=== PATIENT | male | born 1990 | race Caucasian/White ===

== ENCOUNTER 2019-04-09 16:57 | Inpatient (IN) | payer OTHER ==
[2019-04-09 20:34] VITALS: BMI 25.0
[2019-04-09] MEDS ORDERED: MAGNESIUM CITRATE 300 ML BOTTLE PO PRN (20:40)
[2019-04-09] MEDS ORDERED: MENTHOL/PHENOL 1 EACH UD MM PRN (20:40)
[2019-04-09] MEDS ORDERED: MAGNESIUM HYDROX 2400MG/30ML ORAL SUSPENSION 30 ML CUP PO PRN (20:40)
[2019-04-09] MEDS ORDERED: chlordiazePOXIDE HCL 10 MG CAPSULE PO PRN (20:40)
[2019-04-09] MEDS ORDERED: ACETAMINOPHEN 325 MG TABLET (FP) PO PRN ×2 (20:40)
[2019-04-09] MEDS ORDERED: METHOCARBAMOL 500 MG TABLET PO PRN (20:40)
[2019-04-09] MEDS ORDERED: IBUPROFEN 400 MG TABLET (FP) PO PRN (20:40)
[2019-04-09] MEDS ORDERED: NICOTINE POLACRILEX 2 MG GUM BUC PRN (20:40)
[2019-04-09] MEDS ORDERED: hydrOXYzine PAMOATE 25 MG CAPSULE (FP) PO PRN (20:40)
[2019-04-09] MEDS ORDERED: BISMUTH SUBSALICYLATE 524 MG/30 ML UD PO PRN (20:40)
[2019-04-09] MEDS ORDERED: MAG HYDROX/AL HYDROX/SIMETH 30 ML UNIT-DOSE CUP PO PRN (20:40)
--- NOTE | 2019-04-09 21:43 | HP ---
CIWA Score Nausea/Vomitin Muscle Tremors: 1-None Visible, but [place] Anxiety: 3 Agitation: 0-Normal Activity Paroxysmal Sweats: 2 Orientation: 0-Oriented Tacttile Disturbances: 1-Very Mild Itch/Numbness Auditory Disturbances: 0-None Visual Disturbances: 1-Very Mild Sensitivity Headache: 2-Mild CIWA-Ar Total Score: 12 - Admission Criteria OASAS Guidelines: Admission for Medically Managed Detox: Requires at least one of the followin. CIWA greater than 12 2. Seizures within the past 24 hours 3. Delirium tremens within the past 24 hours 4. Hallucinations within the past 24 hours 5. Acute intervention needed for co occurring medical disorder 6. Acute intervention needed for co occurring psychiatric disorder 7. Severe withdrawal that cannot be handled at a lower level of care (continued vomiting, continued diarrhea, abnormal vital signs) requiring intravenous medication and/or fluids 8. Patient presents the following: CIWA greater than 12 Admission Criteria Met: Admission criteria met [facility] Chief Complaint: alcohol withdrawal symptoms Allergies/Adverse Reactions: Allergies Allergy/AdvReac Type Severity Reaction Status Date / Time No Known Allergies Allergy Verified 04/09/19 19:56 History of Present Illness: Patient is a 28 yo male with hx of alcohol and cocaine dependence is here seeking detox, reports first time seeking treatment. Denies any significant medical problems. Reports feeling depressed, denies hx of depression. Reports hx of frequent ETOH blackouts with last episode four days ago. Exam Limitations: No Limitations - Ebola screening Have you traveled outside of the country in the last 21 days: No (N) Have you had contact with anyone from an Ebola affected area: No Do you have a fever: No - Review of Systems Constitutional: Chills, Loss of Appetite, Changes in sleep EENT: reports: No Symptoms Reported Respiratory: reports: No Symptoms reported Cardiac: reports: Palpitations GI: reports: Nausea, Poor Appetite, Poor Fluid Intake : reports: No Symptoms Reported Musculoskeletal: reports: No Symptoms Reported Integumentary: reports: Dryness Neuro: reports: No Symptoms reported Endocrine: reports: No Symptoms Reported Hematology: reports: No Symptoms Reported Psychiatric: reports: Orientated x3, Anxious, Depressed Other Systems: Reviewed and Negative Patient History - Patient Medical History Hx Anemia: No Hx Asthma: No Hx Chronic Obstructive Pulmonary Disease (COPD): No Hx Cancer: No Hx Cardiac Disorders: No Hx Congestive Heart Failure: No Hx Hypertension: No Hx Hypercholesterolemia: No Hx Pacemaker: No HX Cerebrovascular Accident: No Hx Seizures: No Hx Dementia: No Hx Diabetes: No Hx Gastrointestinal Disorders: No Hx Liver Disease: No Hx Genitourinary Disorders: No Hx Sexually Transmitted Disorders: No Hx Renal Disease (ESRD): No Hx Thyroid Disease: No Hx Human Immunodeficiency Virus (HIV): No Hx Hepatitis C: No Hx Depression: No Hx Suicide Attempt: No Hx Bipolar Disorder: No Hx Schizophrenia: No - Patient Surgical History Past Surgical History: Yes Other Surgical History: right foot surgery two 2016 - PPD History Previous Implant?: No Documented Results: Negative w/o proof PPD to be Administered?: Yes - Smoking Cessation Smoking history: Current every day smoker Have you smoked in the past 12 months: Yes Aproximately how many cigarettes per day: 10 Hx Chewing Tobacco Use: No Initiated information on smoking cessation: Yes 'Breaking Loose' booklet given: 04/09/19 - Substance & Tx. History Hx Alcohol Use: Yes Hx Substance Use: Yes Substance Use Type: Alcohol, Cocaine Hx Substance Use Treatment: No - Substances abused Alcohol Substance route: Oral Frequency: Daily Amount used: 12 small glass of Tequila Age of first use: 22 Date of last use: 04/08/19 Marijuana/Hashish Substance route: Smoking Frequency: Daily Amount used: 5 dollars Age of first use: 27 Date of last use: 04/08/19 Cocaine Substance route: Inhalation Frequency: 1-2 times per week Amount used: 20 dollars Age of first use: 27 Date of last use: 04/01/19 Family Disease History - Family Disease History Family History: Denies Admission Physical Exam [facility] - Vital Signs Vital Signs: Vital Signs - 24 hr 04/09/19 19:55 Temperature 98.4 F Pulse Rate 60 Respiratory 16 Rate Blood Pressure 134/59 L - Physical General Appearance: Yes: Nourished, Appropriately Dressed, Sweating, Anxious HEENTM: Yes: EOMI, Hearing grossly Normal, Normal ENT Inspection, Normocephalic , Normal Voice, BETTY, Pharynx Normal, Tm's normal, Other (cheilitis) Respiratory: Yes: Chest Non-Tender, Lungs Clear, Normal Breath Sounds, No Respiratory Distress, No Accessory Muscle Use Neck: Yes: Within Normal Limits Breast: Yes: Breast Exam Deferred Cardiology: Yes: Regular Rhythm, Regular Rate Abdominal: Yes: Normal Bowel Sounds, Non Tender, Flat, Soft Genitourinary: Yes: Within Normal Limits Back: Yes: Normal Inspection Musculoskeletal: Yes: full range of Motion, Gait Steady, Pelvis Stable Extremities: Yes: Normal Capillary Refill, Normal Inspection, Normal Range of Motion, Non-Tender 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: 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 NML intact, Fully Oriented, Alert, Motor Strength 5/5, Depressed Affect Integumentary: Yes: Normal Color, Warm, Diaphoresis Lymphatic: Yes: Within Normal Limits - Diagnostic (1) Alcohol dependence with uncomplicated withdrawal Current Visit: Yes Status: Acute (2) Cocaine dependence Current Visit: Yes Status: Acute Qualifiers: Substance use status: uncomplicated Qualified Code(s): F14.20 - Cocaine dependence, uncomplicated (3) Nicotine dependence Current Visit: Yes Status: Acute Qualifiers: Nicotine product type: cigarettes (4) Depressed mood Current Visit: Yes Status: Acute Cleared for Admission S - Detox or Rehab [facility] Level of Care: Medically Managed Detox Regimen/Protocol: Librium Breathalyzer - Breathalyzer Breathalyzer: 0 Urine Drug Screen - Test Device Lot number: [id number] Expiration date: 01/03/21 - Control Is test valid?: Yes - Results Drug screen NEGATIVE: No Urine drug screen results: THC-Marijuana, CAM-Cocaine Inpatient Rehab Admission - Rehab Decision to Admit Inpatient rehab admission?: No
[2019-04-09] MEDS: chlordiazePOXIDE HCL 25 MG CAPSULE PO SCH (22:40)
[2019-04-09] MEDS: MELATONIN 5 MG TABLETS PO PRN (22:41)
[2019-04-09] MEDS: THIAMINE HCL 100 MG TABLET (FP) PO SCH (22:41)
[2019-04-10] MEDS: chlordiazePOXIDE HCL 25 MG CAPSULE PO SCH ×2 (06:51→14:51)
--- NOTE | 2019-04-10 09:38 | EKG ---
Test Reason : Blood Pressure : / mmHG Vent. Rate : 047 BPM Atrial Rate : 047 BPM P-R Int : 136 ms QRS Dur : 096 ms QT Int : 472 ms P-R-T Axes : 045 072 052 degrees QTc Int : 417 ms SINUS BRADYCARDIA OTHERWISE NORMAL ECG NO PREVIOUS ECGS AVAILABLE Confirmed by VINCE BROWNING, JENNY ([id number]) on 04/10/2019 9:37:46 AM Referred By: Confirmed By:JENNY CLARKE MD
[2019-04-10] MEDS: NICOTINE 14 MG/24 HOURS TOPICAL PATCH TD SCH (10:18)
[2019-04-10] MEDS: PRENATAL VITAMINS W/ FOLIC ACID TABLET (FP) PO SCH (10:18)
[2019-04-10 10:56] LABS: HEMATOCRIT 44.2 % (35.4-49); HEMOGLOBIN 15.1 GM/dL (11.7-16.9); MCHC 34.2 g/dl (32.0-35.9); MEAN CELL VOLUME 93.6 fl (80-96); MEAN PLT VOLUME 9.1 fl (7.5-11.1); PLATELET COUNT 157 K/MM3 (134-434); RBC 4.72 M/mm3 (4.00-5.60); RDW 12.6 % (11.9-15.9); WHITE BLOOD COUNT 9.4 K/mm3 (4.0-10.0)
--- NOTE | 2019-04-10 10:57 | CONSULT ---
[facility] Psychiatric Consult - Data Date of interview: 04/10/19 Identifying data: Mr Meeks is a 28 years old male, father of an 8 years old daughter, unemployed with no source of income, living with familiy seeking detox treatment for alcohol, cocaine and cannabis Substance Abuse History: Reports history of alcohol, cocaine and cannabis use. Refer to addiction counselor's summary for further information Medical History: Significant for history of fracture right foot 2 years ago. Smokes cigarettes 1ppd Psychiatric History: Denies history of previous psychiatric treatment. However, reports sleeping poorly Physical/Sexual Abuse/Trauma History: Denies history of emotional, physical or sexual abuse as well as DV relationship Additional Comment: Reports history of one previous arrest on charges of drikToopher in public Mental Status Exam - Mental Status Exam Alert and Oriented to: Time, Place, Person Cognitive Function: Fair Patient Appearance: Well Groomed Mood: Hopeful, Euthymic Patient Behavior: Cooperative Speech Pattern: Clear Voice Loudness: Normal Thought Process: Intact, Goal Oriented Hallucinations: Denies Suicidal Ideation: Denies Homicidal Ideation: Denies Insight/Judgement: Poor Sleep: Poorly Appetite: Good Muscle strength/Tone: Normal Gait/Station: Normal Psychiatric Findings - Problem List ([place] 1, 2,3) (1) Substance-induced sleep disorder Current Visit: Yes Status: Acute (2) Alcohol dependence with uncomplicated withdrawal Current Visit: Yes Status: Acute (3) Cocaine dependence Current Visit: Yes Status: Acute Qualifiers: Substance use status: uncomplicated Qualified Code(s): F14.20 - Cocaine dependence, uncomplicated (4) Cannabis dependence Current Visit: Yes Status: Acute (5) Nicotine dependence Current Visit: Yes Status: Chronic Qualifiers: Nicotine product type: cigarettes - Initial Treatment Plan Initial Treatment Plan: 1) Start Melatonin 5 mg po HS prn for insomnia. 2) Continue inpatient detoxification
[2019-04-10 10:58] LABS: ALBUMIN 3.8 g/dl (3.4-5.0); BILIRUBIN,TOTAL 0.8 mg/dL (0.2-1); CALCIUM 8.8 mg/dL (8.5-10.1); CREATININE 1.1 mg/dL (0.55-1.3); POTASSIUM 3.5 mmol/L (3.5-5.1); TOT PROT 6.9 g/dl (6.4-8.2)
--- NOTE | 2019-04-10 15:45 | PN ---
S CIWA - CIWA Score Nausea/Vomitin Muscle Tremors: 3 Anxiety: 3 Agitation: 1-Slight > Activity Paroxysmal Sweats: No Perspiration Orientation: 0-Oriented Tacttile Disturbances: 2-Mild Itch/Numbness/Burn Auditory Disturbances: 2-Mild Harshness/Frighten Visual Disturbances: 1-Very Mild Sensitivity Headache: 0-None Present CIWA-Ar Total Score: 14 BHS Progress Note (SOAP) Subjective: Anxious, Nausea, Tremors. Objective: PATIENT A & O X 3. IN NO ACUTE DISTRESS. 04/10/19 15:45 Vital Signs Temperature 97.7 F 04/10/19 13:50 Pulse Rate 60 04/10/19 13:50 Respiratory Rate 17 04/10/19 13:50 Blood Pressure 134/85 04/10/19 13:50 O2 Sat by Pulse Oximetry (%) Laboratory Tests 04/10/19 04/10/19 07:00 07:00 WBC 9.4 RBC 4.72 Hgb 15.1 Hct 44.2 MCV 93.6 MCH 32.0 MCHC 34.2 RDW 12.6 Plt Count 157 MPV 9.1 Sodium 141 Potassium 3.5 Chloride 105 Carbon Dioxide 28 Anion Gap 8 BUN 11 Creatinine 1.1 Est GFR (CKD-EPI)AfAm 106.81 Est GFR (CKD-EPI)NonAf 92.16 Random Glucose 104 Calcium 8.8 Total Bilirubin 0.8 AST 22 ALT 30 Alkaline Phosphatase 62 Total Protein 6.9 Albumin 3.8 LABS NOTED. RPR RESULT PENDING. 04/10/19 15:46 Assessment: 04/10/19 15:46 WITHDRAWAL SYMPTOMS. Plan: CONTINUE DETOX.
[2019-04-10] MEDS: MELATONIN 5 MG TABLETS PO PRN (22:08)
[2019-04-10] MEDS: chlordiazePOXIDE 5 MG CAPSULE PO SCH (22:08)
[2019-04-10] MEDS: THIAMINE HCL 100 MG TABLET (FP) PO SCH (22:08)
[2019-04-11] MEDS: chlordiazePOXIDE 5 MG CAPSULE PO SCH ×2 (06:22→14:05)
[2019-04-11] MEDS: PRENATAL VITAMINS W/ FOLIC ACID TABLET (FP) PO SCH (09:57)
[2019-04-11] MEDS: NICOTINE 14 MG/24 HOURS TOPICAL PATCH TD SCH (09:58)
--- NOTE | 2019-04-11 11:33 | PN ---
S CIWA - CIWA Score Nausea/Vomitin Muscle Tremors: 2 Anxiety: 2 Agitation: 2 Paroxysmal Sweats: 1-Minimal Palms Moist Orientation: 0-Oriented Tacttile Disturbances: 1-Very Mild Itch/Numbness Auditory Disturbances: 1-Very Mild Visual Disturbances: 0-None Headache: 2-Mild CIWA-Ar Total Score: 13 BHS Progress Note (SOAP) Subjective: alert,irritable,anxious,interrupted sleep,tremor Objective: 04/11/19 11:32 Vital Signs Temperature 98.4 F 04/11/19 09:18 Pulse Rate 58 L 04/11/19 09:18 Respiratory Rate 18 04/11/19 09:18 Blood Pressure 120/76 04/11/19 09:18 O2 Sat by Pulse Oximetry (%) 04/11/19 11:32 Laboratory Last Values WBC 9.4 K/mm3 (4.0-10.0) 04/10/19 07:00 RBC 4.72 M/mm3 (4.00-5.60) 04/10/19 07:00 Hgb 15.1 GM/dL (11.7-16.9) 04/10/19 07:00 Hct 44.2 % (35.4-49) 04/10/19 07:00 MCV 93.6 fl (80-96) 04/10/19 07:00 MCH 32.0 pg (25.7-33.7) 04/10/19 07:00 MCHC 34.2 g/dl (32.0-35.9) 04/10/19 07:00 RDW 12.6 % (11.9-15.9) 04/10/19 07:00 Plt Count 157 K/MM3 (134-434) 04/10/19 07:00 MPV 9.1 fl (7.5-11.1) 04/10/19 07:00 Sodium 141 mmol/L (136-145) 04/10/19 07:00 Potassium 3.5 mmol/L (3.5-5.1) 04/10/19 07:00 Chloride 105 mmol/L (98-107) 04/10/19 07:00 Carbon Dioxide 28 mmol/L (21-32) 04/10/19 07:00 Anion Gap 8 MMOL/L (8-16) 04/10/19 07:00 BUN 11 mg/dL (7-18) 04/10/19 07:00 Creatinine 1.1 mg/dL (0.55-1.3) 04/10/19 07:00 Est GFR (CKD-EPI)AfAm 106.81 04/10/19 07:00 Est GFR (CKD-EPI)NonAf 92.16 04/10/19 07:00 Random Glucose 104 mg/dL (74-106) 04/10/19 07:00 Calcium 8.8 mg/dL (8.5-10.1) 04/10/19 07:00 Total Bilirubin 0.8 mg/dL (0.2-1) 04/10/19 07:00 AST 22 U/L (15-37) 04/10/19 07:00 ALT 30 U/L (13-61) 04/10/19 07:00 Alkaline Phosphatase 62 U/L (45-117) 04/10/19 07:00 Total Protein 6.9 g/dl (6.4-8.2) 04/10/19 07:00 Albumin 3.8 g/dl (3.4-5.0) 04/10/19 07:00 RPR Titer Nonreactive (NONREACTIVE) 04/10/19 07:00 Assessment: 04/11/19 11:33 withdrawal symptom Plan: continue detox
[2019-04-11] MEDS ORDERED: chlordiazePOXIDE HCL 10 MG CAPSULE PO PRN (21:00)
[2019-04-11] MEDS: MELATONIN 5 MG TABLETS PO PRN (21:24)
[2019-04-11] MEDS: chlordiazePOXIDE HCL 10 MG CAPSULE PO SCH (21:24)
[2019-04-11] MEDS: THIAMINE HCL 100 MG TABLET (FP) PO SCH (22:57)
[2019-04-12] MEDS: chlordiazePOXIDE HCL 10 MG CAPSULE PO SCH (05:30)
[2019-04-12 09:17] VITALS: BP 135/71; PULSE 63; TEMP 98.1
--- NOTE | 2019-04-12 09:29 | DS ---
[facility] Detox Discharge Summary Admission Date: 04/09/19 Discharge Date: 04/12/19 - History Present History: Alcohol Dependence, Cannabis Dependence, Cocaine Dependence - Physical Exam Results Vital Signs: Vital Signs Temperature 98.1 F 04/12/19 09:17 Pulse Rate 63 04/12/19 09:17 Respiratory Rate 18 04/12/19 09:17 Blood Pressure 135/71 04/12/19 09:17 O2 Sat by Pulse Oximetry (%) - Treatment Hospital Course: Detox Protocol Followed, Detoxed Safely, Responded well, Discharged Condition Good, Rehab Referral Accepted - Medication Discharge Medications: Ambulatory Orders NK [No Known Home Medication] 04/09/19 - Diagnosis (1) Alcohol dependence with uncomplicated withdrawal Current Visit: Yes Status: Chronic (2) Cannabis dependence Current Visit: Yes Status: Chronic (3) Cocaine dependence Current Visit: Yes Status: Chronic Qualifiers: Substance use status: uncomplicated Qualified Code(s): F14.20 - Cocaine dependence, uncomplicated (4) Depressed mood Current Visit: Yes Status: Acute (5) Substance-induced sleep disorder Current Visit: Yes Status: Acute (6) Nicotine dependence Current Visit: Yes Status: Chronic Qualifiers: Nicotine product type: cigarettes Substance use status: uncomplicated Qualified Code(s): F17.210 - Nicotine dependence, cigarettes, uncomplicated - AMA Did Patient Leave Against Medical Advice: No (pt referred to [facility] outpatient rehab)
== END 2019-04-12 09:31 | disposition home or self-care (01) | DRG 774 ==
LOC: YASAS 16:57 → Y6N 21:19
PROVIDERS: ADMIT Surgery; ATTEND Surgery
PROC: HZ2ZZZZ Detoxification Services for Substance Abuse Treatment (ICD-10-PCS; principal; 2019-04-09)
DX: F10.230 Alcohol dependence with withdrawal, uncomplicated (principal); F14.20 Cocaine dependence, uncomplicated; F12.20 Cannabis dependence, uncomplicated; F17.210 Nicotine dependence, cigarettes, uncomplicated; F19.282 Other psychoactive substance dependence with psychoactive substance-induced sleep disorder; F32.9 Major depressive disorder, single episode, unspecified
CPT/HCPCS: 36415; 80053; 85027; 86593; 93005; 93010